=== PATIENT | female | born 1965 | race Caucasian/White ===

== ENCOUNTER 2017-05-03 14:48 | Inpatient (IN) | payer MEDICARE, OTHER ==
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
[2017-05-03 16:44] LABS: ALB/GLOB RATIO 1.1 (1.0-1.8); ALBUMIN 3.9 gm/dL (3.7-5.3); ALKALINE PHOSPHATASE 162 U/L (34-104); BILIRUBIN,TOTAL 0.2 mg/dL (0.3-1.0); BUN - UREA NITROGEN 10 mg/dL (7-25); CALCIUM SERUM 9.3 mg/dL (8.6-10.3); CARBON DIOXIDE 25.7 mEq/L (21.0-31.0); CHLORIDE 102 mEq/L (98-107); CHOLESTEROL 370 mg/dL (<200); CREATININE - SERUM 0.4 mg/dL (0.6-1.2); GFR AFRICAN-AMERICAN > 60.0 ml/min (>90); GFR NON AFRICAN-AMERICAN > 60.0 ml/min; GLUCOSE 96 mg/dL (70-105); HDL -HIGH DENSITY LIPOPROTEIN 55 mg/dL (23-92); POTASSIUM SERUM 3.7 mEq/L (3.5-5.1); SGOT 11 U/L (13-39); SGPT/ALT 15 U/L (7-52); SODIUM SERUM 134 mEq/L (136-145); TOTAL PROTEIN,SERUM 7.5 gm/dL (6.0-8.3); TRIGLYCERIDES 475 mg/dL (<150)
[2017-05-03 17:08] LABS: HEMATOCRIT 37.6 % (41.0-60); HEMOGLOBIN 12.6 gm/dL (12-16); MEAN CELL VOLUME 91.9 fl (81-100); MEAN CORPUSCULAR HEMOGLOBIN 30.9 pg (27.0-31.0); MEAN CORPUSCULAR HGB CONC 33.7 pg (28.0-36.0); MEAN PLATELET VOLUME 8.3 fl; PLATELET COUNT 262 Th/cmm (150-400); RED BLOOD COUNT 4.09 Mil/cmm (3.80-5.10); RED CELL DISTRIBUTION WIDTH 14.6 % (11.5-20.0); WHITE BLOOD COUNT 11.9 Th/cmm (4.8-10.8)
[2017-05-03 17:14] LABS: MANUAL DIFF REQUIRED? YES
[2017-05-03 17:44] LABS: BAND NEUTROPHILE 2 % (0-10); LYMPHOCYTE 42 % (20-50); MONOCYTE 9 % (2-10); NEUTROPHILS 44 % (40-80); TOTAL CELLS COUNTED 100
[2017-05-03 17:45] LABS: EOSINOPHIL 3 % (0-5); PLATELET ESTIMATE ADEQUATE (NORMAL)
[2017-05-03 18:43] VITALS: BP 135/67
[2017-05-03] MEDS ORDERED: Albuterol/Ipratropium Neb 3 ML AERS HHN PRN (21:39)
[2017-05-04] MEDS ORDERED: Albuterol/Ipratropium Neb 3 ML AERS HHN SCH (01:00)
[2017-05-04] MEDS ORDERED: Fleet Enema 135 mL RC PRN (03:06)
[2017-05-04] MEDS ORDERED: Magnesium Hydroxide (MOM) 30 mL UDC PO PRN (03:35)
[2017-05-04] MEDS: Morphine 10 mg/5 ml 5mL UDC PO PRN ×3 (06:01→19:47)
[2017-05-04] MEDS: Pantoprazole 40 mg EC Tab PO SCH (09:53)
[2017-05-04] MEDS: Multivitamin Tab PO SCH (09:53)
[2017-05-04] MEDS: Aspirin 81mg Chewable Tab PO SCH (09:53)
[2017-05-04] MEDS: oxyCODONE 5 mg IR Tab PO PRN ×2 (09:53→18:02)
[2017-05-04] MEDS: Diclofenac 75 mg Tab PO SCH ×2 (10:00→16:39)
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
[2017-05-04 17:00] LABS: URINE MICROSCOPIC INDICATED? YES; URINE SOURCE CLEAN C
[2017-05-04 17:02] LABS: URINE BILIRUBIN NEGATIVE (NEGATIVE); URINE BLOOD NEGATIVE (NEGATIVE); URINE GLUCOSE (UA) NEGATIVE (NEGATIVE); URINE KETONE NEGATIVE (NEGATIVE); URINE LEUKOCYTE ESTERASE NEGATIVE (NEGATIVE); URINE NITRATE NEGATIVE (NEGATIVE); URINE PROTEIN NEGATIVE (NEGATIVE); URINE UROBILINOGEN 0.2 E.U./dL (0.2 - 1.0)
[2017-05-04 17:04] LABS: URINE BACTERIA NONE SEEN /hpf (NONE SEEN); URINE CLARITY CLEAR (CLEAR); URINE COLOR YELLOW; URINE EPITHELIAL CELLS NONE SEEN /lpf (FEW); URINE RBC NONE SEEN /hpf (0-5); URINE WBC NONE SEEN /hpf (0-5)
[2017-05-05] MEDS: Morphine 10 mg/5 ml 5mL UDC PO PRN ×4 (01:54→20:12)
[2017-05-05] MEDS: Pantoprazole 40 mg EC Tab PO SCH (09:35)
[2017-05-05] MEDS: Multivitamin Tab PO SCH (09:35)
[2017-05-05] MEDS: Aspirin 81mg Chewable Tab PO SCH (09:36)
[2017-05-05] MEDS: Diclofenac 75 mg Tab PO SCH ×2 (09:44→17:21)
[2017-05-05] MEDS: oxyCODONE 5 mg IR Tab PO PRN (11:32)
--- NOTE | 2017-05-05 18:49 | Progress Notes ---
DATE: 05/05/2017 SUBJECTIVE: The patient was seen, chart reviewed and discussed with staff. The patient admitted from [facility] after becoming combative and violent with staff, was found to be quite paranoid and accusatory. The patient continues to be very paranoid, accusing staff and peers are trying to hurt her; however, she has been compliant with her medications, denying any undue side effects at this time and generally been receptive to redirections. PLAN: The patient continues to be actively psychotic and unpredictable, so that she will require Inpatient [facility] treatment. We will monitor patient on a daily basis for response to medications and continue current medications and titrate as needed. [facility]# [id number]
[2017-05-06] MEDS: Morphine 10 mg/5 ml 5mL UDC PO PRN ×3 (03:18→16:01)
[2017-05-06] MEDS: Multivitamin Tab PO SCH (08:42)
[2017-05-06] MEDS: Aspirin 81mg Chewable Tab PO SCH (08:44)
[2017-05-06] MEDS: oxyCODONE 5 mg IR Tab PO PRN ×3 (08:46→22:00)
[2017-05-06] MEDS: Pantoprazole 40 mg EC Tab PO SCH (08:46)
[2017-05-06] MEDS: Diclofenac 75 mg Tab PO SCH ×2 (11:49→17:18)
[2017-05-06] MEDS: NYSTATIN 100000 UNITS/GM POWD TP SCH ×2 (13:45→21:13)
--- NOTE | 2017-05-06 18:53 | Psychosocial Evaluation ---
DATE OF SERVICE: 05/03/2017 PSYCHIATRIC INITIAL EVALUATION AND MENTAL STATUS EXAM AGE: 52. SEX: Female. PHYSICIAN: Dr. Belcher CHIEF COMPLAINT: Agitation and irritable mood and aggressive behavior. HISTORY OF PRESENT ILLNESS: The patient is a 52-year-old female with history of schizoaffective disorder as well as seizure disorder. The patient was transferred from [facility] because of increased agitation and irritability and aggressive behavior with the staff. She also was striking out towards staff. She also was refusing medications. Also, upon admission, the patient was angry and agitated and in irritable mood. The patient also fell down 3 days prior to her admission from her wheelchair in the nursing facility. The patient had slight abrasion on the right elbow according to the admission report from the Emergency Room. The patient is still angry and in irritable mood. She also is suspicious and still paranoid. PAST PSYCHIATRIC HISTORY: The patient has history of multiple psychiatric hospitalizations for treatment of schizoaffective disorder, bipolar type. PAST MEDICAL HISTORY: The patient has history of seizure disorder. MEDICATIONS: In the nursing facility, Seroquel, Zoloft, and BuSpar. SOCIAL HISTORY: The patient lives in [facility]. No known alcohol or street drug use. No known legal issues or abuse issues. ALLERGIES: No known allergies. MENTAL STATUS EXAMINATION: The patient appears older than her stated age. Disheveled. Irritable and angry moods. Thought processes are circumstantial and tangential with occasional flight of ideas. The patient is suspicious and paranoid, although denies auditory or visual hallucinations. She denies any thoughts of suicide or homicide. The patient is alert and oriented to situation, place and person, but not to date. Intact immediate, recent, and remote memories. Poor insight and poor judgment. ASSESSMENT: PRIMARY DIAGNOSIS: Schizoaffective disorder, bipolar type, with psychotic features, severe. MEDICAL DIAGNOSIS: Seizure disorder. TREATMENT PLAN: We will monitor behavior and her condition closely. Also, we will continue current medications, but will increase her BuSpar to 10 mg 3 times a day. We will continue to work on her impulse control problem. ESTIMATED LENGTH OF STAY: 5-7 days. THE PATIENT'S STRENGTHS AND WEAKNESSES: The patient's strength is not clear at this time. Weaknesses is ineffective coping. Also, her impulse control is poor. AFTER DISCHARGE PLAN: Outpatient treatment and followup will continue as an outpatient and the patient will return to [facility]. JOB# [id number]
[2017-05-07] MEDS: Morphine 10 mg/5 ml 5mL UDC PO PRN ×3 (00:51→15:05)
[2017-05-07] MEDS: Pantoprazole 40 mg EC Tab PO SCH (08:51)
[2017-05-07] MEDS: Aspirin 81mg Chewable Tab PO SCH (08:51)
[2017-05-07] MEDS: Multivitamin Tab PO SCH (09:03)
[2017-05-07] MEDS: NYSTATIN 100000 UNITS/GM POWD TP SCH ×3 (09:20→21:38)
[2017-05-07] MEDS: oxyCODONE 5 mg IR Tab PO PRN ×2 (11:18→19:01)
[2017-05-07] MEDS: Diclofenac 75 mg Tab PO SCH ×2 (11:20→16:46)
--- NOTE | 2017-05-07 15:35 | Progress Notes ---
DATE: 05/06/2017 SUBJECTIVE: The patient was seen, chart reviewed, and discussed with staff. The patient continues to be very paranoid, accusatory stating that staff were trying to harm her. She has however been compliant with her medications, following unit rules with minimal redirections. PLAN: The patient continues to be actively psychotic and unpredictable. It is felt that she will require continued inpatient care for stabilization and treatment. We will monitor the patient on a daily basis for response to medications and titrate meds as needed. [facility]# [id number]
--- NOTE | 2017-05-07 19:58 | Progress Notes ---
DATE: 05/07/2017 Case was discussed with staff of the patient, reviewed records. Covering for Dr. Belcher. This is a 52-year-old female who was admitted with a history of schizoaffective disorder and seizure disorder. She was transferred from [facility] because of increasing agitation, irritability, aggressive behavior with the staff. She was striking out with staff. She was refusing medication. The patient was angry, agitated with her moods and fell down 3 days prior to admission from her wheelchair in a nursing facility. She has slight bruise on the right elbow according to the admission report from Emergency Room. The patient is still angry, irritable, mood, suspicious and paranoid with history of multiple psychiatric hospitalizations for schizoaffective disorder. The patient has been compliant with the medication and was more cooperative. Continues with paranoid, continues to need redirection according to staff. She is on BuSpar 10 mg 3 times a day, Klonopin 0.5 mg 3 times a day as needed and Neurontin 800 mg every 6 hours and Seroquel 300 mg at bedtime and Zoloft 150 mg at bedtime. No side effects, no sedation, no nausea, no extrapyramidal symptoms. We will continue to work with the patient in group therapy and milieu therapy, and adjust medications as needed. JOB# [id number]
[2017-05-08] MEDS: Morphine 10 mg/5 ml 5mL UDC PO PRN ×3 (02:59→17:50)
[2017-05-08] MEDS: oxyCODONE 5 mg IR Tab PO PRN ×2 (08:25→21:00)
[2017-05-08] MEDS: Aspirin 81mg Chewable Tab PO SCH (08:26)
[2017-05-08] MEDS: Pantoprazole 40 mg EC Tab PO SCH (08:26)
[2017-05-08] MEDS: Multivitamin Tab PO SCH (13:34)
[2017-05-08] MEDS: Diclofenac 75 mg Tab PO SCH (17:53)
[2017-05-08] MEDS: NYSTATIN 100000 UNITS/GM POWD TP SCH (21:00)
--- NOTE | 2017-05-08 22:09 | Progress Notes ---
DATE: 05/08/2017 Case was discussed with staff of the patient, reviewed records. Covering for Dr. Belcher. The patient continues to have episodes of agitation, irritability, aggressive behavior with the staff, striking out at staff, refusing medication at times, angry, agitated and she continues to be unpredictable, impulsive, needing redirection. She is compliant with the medication with no side effects, no sedation, no nausea and no extrapyramidal symptoms. We will continue to work the patient in group therapy, milieu therapy, and adjust medication as needed. JOB# [id number]
[2017-05-09] MEDS: Morphine 10 mg/5 ml 5mL UDC PO PRN ×3 (02:21→19:02)
[2017-05-09] MEDS: Pantoprazole 40 mg EC Tab PO SCH (10:26)
[2017-05-09] MEDS: Aspirin 81mg Chewable Tab PO SCH (10:26)
[2017-05-09] MEDS: oxyCODONE 5 mg IR Tab PO PRN (14:45)
[2017-05-09] MEDS: Diclofenac 75 mg Tab PO SCH ×2 (17:54→18:07)
[2017-05-09] MEDS: NYSTATIN 100000 UNITS/GM POWD TP SCH ×2 (18:07→21:35)
[2017-05-09] MEDS: Multivitamin Tab PO SCH (18:08)
[2017-05-10] MEDS: oxyCODONE 5 mg IR Tab PO PRN ×2 (00:51→16:21)
[2017-05-10] MEDS: Morphine 10 mg/5 ml 5mL UDC PO PRN ×2 (05:57→13:43)
--- NOTE | 2017-05-10 08:33 | Discharge Summary ---
DATE OF DISCHARGE: 05/10/2017 AGE: 52. SEX: Female. PHYSICIAN: Roger Belcher M.D., M.P.H. FINAL DIAGNOSES: Schizoaffective disorder, bipolar type, with psychotic features. REASON FOR HOSPITALIZATION: The patient was admitted to the hospital because of increased agitation and irritability in the long-term where she lives and she was also not able to follow any of the staff' directions and was more irritable and agitated. HOSPITAL COURSE: The patient continued to be extremely agitated and irritable. The patient also was restless. The patient was given BuSpar and the dose adjusted to 10 mg 3 times a day. She also was given Klonopin every 8 hours. The patient also was restless and needs close monitoring. Placement was an issue and rehabilitation case coordinator talked to [facility], who refused to take the patient back. They made arrangements for the patient to go to a mot and the patient agreed to do so. The patient was discharged to [facility] with plans for outpatient treatment and follow up as an outpatient. Physical examination of the patient showed that the patient has history of seizure disorder and the patient was taking Keppra 1000 mg twice a day. AFTER DISCHARGE PLANS: The patient discharged from the hospital and went to the mot with plan to continue her treatment as an outpatient with psychiatrist. The patient was given an option to see me in my office next 05/18/2017 at 11 a.m. EXPECTED OUTCOME AFTER DISCHARGE: Guarded because of the patient's history with noncompliance with treatment and because of her . [facility]# [id number]
[2017-05-10] MEDS: Aspirin 81mg Chewable Tab PO SCH (08:44)
[2017-05-10] MEDS: Pantoprazole 40 mg EC Tab PO SCH (08:45)
[2017-05-10] MEDS: Multivitamin Tab PO SCH (08:50)
[2017-05-10] MEDS: NYSTATIN 100000 UNITS/GM POWD TP SCH ×2 (09:20→13:49)
[2017-05-10] MEDS: Diclofenac 75 mg Tab PO SCH ×3 (09:25→16:20)
--- NOTE | 2017-05-10 17:58 | Progress Notes ---
DATE: 05/09/2017 PSYCHIATRIC PROGRESS NOTE SUBJECTIVE: Chart reviewed and the patient interviewed. Also discussed the patient's condition with the staff and reviewed records and labs. The patient is still extremely irritable and anxious. She also is still intrusive and impulsive. The patient also is still easily agitated. The patient also is still med seeking. She also is still in angry mood and needs lots of redirections. Otherwise, the patient is compliant with taking her medications. Discussed with therapeutic case manager discharge plans and placement issue and apparently, the patient cannot return back to [place] and continue to work on trying to find different place for the patient. ASSESSMENT: The patient is still psychotic and agitated. TREATMENT PLAN: Continue to monitor her psychotropic medications and working on finding a different place for the patient. JOB# [id number]
== END 2017-05-10 17:15 | disposition short-term general hospital (02) | DRG 885 ==
LOC: ER 14:48 → GERO 17:00
PROVIDERS: ADMIT Psychiatry & Neurology Psychiatry; ATTEND Psychiatry & Neurology Psychiatry
DX: F25.0 Schizoaffective disorder, bipolar type (principal); G93.41 Metabolic encephalopathy; E87.1 Hypo-osmolality and hyponatremia; Z89.611 Acquired absence of right leg above knee; Z89.612 Acquired absence of left leg above knee; G62.9 Polyneuropathy, unspecified; E78.5 Hyperlipidemia, unspecified; F17.210 Nicotine dependence, cigarettes, uncomplicated; S50.311A Abrasion of right elbow, initial encounter; D72.829 Elevated white blood cell count, unspecified; G40.909 Epilepsy, unspecified, not intractable, without status epilepticus; Z66 Do not resuscitate; J45.909 Unspecified asthma, uncomplicated; K21.9 Gastro-esophageal reflux disease without esophagitis; M19.90 Unspecified osteoarthritis, unspecified site; F32.9 Major depressive disorder, single episode, unspecified; W07.XXXA Fall from chair, initial encounter; G89.29 Other chronic pain; M62.838 Other muscle spasm; F29 Unspecified psychosis not due to a substance or known physiological condition; Z88.8 Allergy status to other drugs, medicaments and biological substances; Z90.710 Acquired absence of both cervix and uterus; Y93.89 Activity, other specified; Y92.89 Other specified places as the place of occurrence of the external cause; Y99.8 Other external cause status; Z88.2 Allergy status to sulfonamides; Z88.0 Allergy status to penicillin; Z88.6 Allergy status to analgesic agent; Z82.3 Family history of stroke
CPT/HCPCS: 36415-UA; 80053-TC; 80061-TC; 81001-TC; 84443-TC; 85007-TC; 85027-TC; 86592-TC; 93005; 94760; Z7610